=== PATIENT | female | born 2000 | race Caucasian/White ===

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

== ENCOUNTER 2020-05-28 14:47 | Inpatient (IN) | payer OTHER ==
[2020-05-28 16:02] VITALS: BMI 42.7
[2020-05-28] MEDS ORDERED: BUTORPHANOL TARTRATE 1 MG/ML VIAL IVPB PRN (16:41)
[2020-05-28] MEDS ORDERED: DINOPROSTONE 10 MG VAGINAL SUPPOSITORY VG ONE (16:43)
[2020-05-28] MEDS ORDERED: ELECTROLYTE-148 SOLN 1,000 ML IV SCH (16:45)
--- NOTE | 2020-05-28 16:53 | HP ---
Past Medical History - Primary Care Physician PCP:: Lali Marion - Admission Chief Complaint: spontaneous rupture of membranes. 40 week History of Present Illness: 20 yo EDC EGA 40.2 week admitted for SRom and obesity History Source: Patient Limitations to Obtaining History: No Limitations - Past Medical History ...: 2 ...Para: 1 ...Term: 1 ...EDC by Sono: 05/26/20 - Past Surgical History Past Surgical History: Yes: None Hx Myomectomy: No Hx Transabdominal Cerclage: No - Smoking History Smoking history: Never smoked Have you smoked in the past 12 months: No - Alcohol/Substance Use Hx Alcohol Use: No History of Substance Use: reports: None Home Medications - Allergies Allergies/Adverse Reactions: Allergies Allergy/AdvReac Type Severity Reaction Status Date / Time apple Allergy Itching Verified 05/28/20 15:46 No Known Drug Allergies Allergy Verified 05/28/20 15:46 soy Allergy Nausea Verified 05/28/20 15:46 - Home Medications Home Medications: Ambulatory Orders Vitamins (Sjr) - 1 tab PO DAILY 10/18/18 Review of Systems - Review of Systems Constitutional: reports: No Symptoms Eyes: reports: No Symptoms HENT: reports: No Symptoms Neck: reports: No Symptoms Cardiovascular: reports: No Symptoms Respiratory: reports: No Symptoms Gastrointestinal: reports: No Symptoms Genitourinary: reports: No Symptoms Breasts: reports: No Symptoms Reported Musculoskeletal: reports: No Symptoms Integumentary: reports: No Symptoms Neurological: reports: No Symptoms Endocrine: reports: No Symptoms Hematology/Lymphatic: reports: No Symptoms Psychiatric: reports: No Symptoms Physical Exam - Maternity Vital Signs: Vital Signs Temperature 97.8 F 05/28/20 16:00 Pulse Rate 76 05/28/20 16:00 Respiratory Rate 18 05/28/20 16:00 Blood Pressure 126/74 05/28/20 16:00 O2 Sat by Pulse Oximetry (%) 100 05/28/20 16:00 Constitutional: Yes: Well Nourished, No Distress Neck: Yes: WNL Breast(s): Yes: WNL - Abdominal Exam/OB Fundal Height: 40 Number of Fetuses: Single Presentation: Vertex Contractions: Yes Regularity: Irritability Monitor Mode: External Heart Rate Location: [facility] Category: I Decelerations: None - Vaginal Exam/OB Vaginal Bleeding: No Dilatation (cm): closed Effacement (%): 50 Amniotic Membrane Status: Ruptured Amniotic Fluid: Yes: Clear - Physical Exam Musculoskeletal: Yes: WNL Extremities: Yes: WNL Edema: No Psychiatric: Yes: WNL, Alert, Oriented Hemorrhage Risk Assessment - Risk Factors Medium Risk Factors: Yes: None Risk Score: 1 Risk Level: Medium Risk Assessment/Plan IUP at 40.2 week srom obesity cat 1 Plan cervidil placed by Dr Rodríguez
--- NOTE | 2020-05-28 17:25 | PN ---
Progress Note (short form) - Note Progress Note: Patient admitted with rupture of membranes. She is 2 days overdue with her second baby. Examination as per request of Dr. Marion. Cervix is closed, 50%, station -3. Clear amniotic fluid. Dr. Marion recommended Cervidil induction. Explained to patient who agrees with that. Cervidil placed at the level of external os.
[2020-05-28 17:34] LABS: BASO % 0.5 % (0-2.0); EOS % 2.3 % (0-4.5); HEMATOCRIT 34.5 % (32.4-45.2); HEMOGLOBIN 11.5 GM/dL (10.7-15.3); LYMPH % 18.1 % (8-40); MCH 27.5 pg (25.7-33.7); MCHC 33.2 g/dl (32.0-36.0); MEAN CELL VOLUME 82.9 fl (80-96); MEAN PLT VOLUME 8.8 fl (7.5-11.1); MONO % 5.7 % (3.8-10.2); NEUT % 73.4 % (42.8-82.8); PLATELET COUNT 269 K/MM3 (134-434); RBC 4.17 M/mm3 (3.60-5.2); RDW 14.7 % (11.6-15.6); WHITE BLOOD COUNT 7.5 K/mm3 (4.0-10.0)
[2020-05-28 17:41] LABS: INR 0.89 (0.83-1.09); PROTHROMBIN TIME (PATIENT) 10.8 SEC (9.7-13.0)
[2020-05-28 17:43] LABS: ACTIVATED PTT 26.5 SECONDS (25.2-36.5)
[2020-05-28 18:01] LABS: POTASSIUM 4.1 mmol/L (3.5-5.1)
[2020-05-28 18:02] LABS: CALCIUM 9.1 mg/dL (8.5-10.1)
[2020-05-28 18:03] LABS: BLOOD UREA NITROGEN 8.7 mg/dL (7-18)
[2020-05-28 18:06] LABS: CREATININE 0.6 mg/dL (0.55-1.3)
[2020-05-28] MEDS ORDERED: BUTORPHANOL TARTRATE 2 MG/ML VIAL ONE (23:40)
[2020-05-29] MEDS ORDERED: OXYTOCIN 20 UNITS in 0.9% NS 20 UNIT/1,000 ML INFUS.BAG IV ONE ×2 (01:53→04:52)
[2020-05-29] MEDS ORDERED: LIDOCAINE HCL 1% PRESERVATIVE FREE - 30ML VIAL ONE (02:00)
--- NOTE | 2020-05-29 02:02 | PN ---
Ante-Partal Exam - Subjective Vital Signs: Vital Signs Temperature 98.2 F 05/29/20 00:00 Pulse Rate 71 05/29/20 00:00 Respiratory Rate 18 05/29/20 00:00 Blood Pressure 135/71 05/29/20 00:00 O2 Sat by Pulse Oximetry (%) 100 05/28/20 23:00 Bleeding: No Headache: No - Contractions Contractions: Yes Regularity: Regular Monitor Mode: External - Exam during Labor Variability: Moderate Exam: Vaginal Dilatation (cm): 7-8 Amniotic Membrane Status: Ruptured Presentation: Vertex - Assessment/Plan Assessment/Plan: Active labor anticipate vaginal delivery Plan continue present manahement
[2020-05-29] MEDS ORDERED: METHYLERGONOVINE MALEATE 0.2 MG/1 ML AMP IM PRN (02:31)
[2020-05-29] MEDS ORDERED: BISACODYL 10 MG SUPP.RECT PR PRN (02:31)
[2020-05-29] MEDS ORDERED: BENZOCAINE 28 GM HEMORRHOIDAL OINTMENT RC PRN (02:31)
[2020-05-29] MEDS ORDERED: WITCH HAZEL 50% (TUCKS) 40 PAD/JAR PAD TP PRN (02:31)
[2020-05-29] MEDS ORDERED: BENZOCAINE 20% 57 GM BOTTLE TP PRN (02:31)
--- NOTE | 2020-05-29 02:34 | PN ---
Delivery - Delivery Vaginal Delivery: No Problems, Spontaneous (dleivered by laborist due to precipitous delivery) Type of Anesthesia: Local Episiotomy/Laceration: 1st degree Delivery, Single - Stages of Labor Placenta: Yes: Spontaneous - Condition of Gender: Male Position: OA - [place] Feeding Plan Initial Plan: Elected not to breastfeed exclusively throughout hospitalization
[2020-05-29] MEDS ORDERED: OXYTOCIN 20 UNITS in 0.9% NS 20 UNIT/1,000 ML INFUS.BAG IV SCH (02:45)
[2020-05-29] MEDS: IBUPROFEN 600 MG TABLET (FP) PO PRN ×2 (03:35→12:21)
[2020-05-29] MEDS: ACETAMINOPHEN 325 MG TABLET (FP) PO PRN ×2 (03:35→12:22)
[2020-05-29] MEDS ORDERED: ACETAMINOPHEN 325 MG TABLET (FP) ONE (03:39)
[2020-05-29] MEDS ORDERED: IBUPROFEN 600 MG TABLET (FP) PO ONE (03:39)
[2020-05-29 04:40] LABS: CORD BASE EXCESS -3.6 mmol/L (0-2); CORD HCO3 22.9 mmHg (20-29); CORD PCO2 46.3 mmHg (30-78); CORD pH 7.313 (7.14-7.44)
[2020-05-29 04:45] LABS: CORD BASE EXCESS -6.3 mmol/L (0-2); CORD HCO3 23.4 mmHg (20-29); CORD PCO2 63.9 mmHg (30-78); CORD pH 7.182 (7.14-7.44)
--- NOTE | 2020-05-29 23:46 | PN ---
Post Note - Post Date of Delivery: 05/29/20 Vital Signs: Vital Signs - 24 hr 05/29/20 05/29/20 05/29/20 00:00 01:00 02:40 Temperature 98.2 F 97.9 F 98.0 F Pulse Rate 71 79 89 Respiratory 18 20 20 Rate Blood Pressure 135/71 130/85 116/69 05/29/20 05/29/20 05/29/20 02:55 03:10 03:25 Temperature 98.0 F Pulse Rate 74 71 72 Respiratory 20 20 20 Rate Blood Pressure 126/68 108/67 120/60 05/29/20 05/29/20 05/29/20 05:25 10:00 14:00 Temperature 98.1 F 98.7 F 98 F Pulse Rate 74 65 82 Respiratory 18 20 20 Rate Blood Pressure 107/75 131/55 L 114/65 05/29/20 17:45 Temperature 98.5 F Pulse Rate 80 Respiratory 20 Rate Blood Pressure 126/62 Labs: Laboratory Results - last 24 hr 05/28/20 05/29/20 05/29/20 15:50 02:08 02:08 Cord Blood pH 7.313 7.182 Cord Blood PCO2 46.3 63.9 Cord Blood PO2 38.2 20.7 Cord Blood HCO3 22.9 23.4 Cord Base Excess -3.600 L -6.300 L COVID-19 (NADINE) Not detected - Subjective Subjective: No Complaints - Objective Afebrile: Yes Breast: Not engorged Abdomen: Soft, Non-tender Uterus: Fundus firm Vagina: Scant lochia Extremities: Non-tender - Assessment/Plan (1) Normal vaginal delivery Assessment: S/P Normal Plan: Routine Care
[2020-05-30 08:30] LABS: BASO % 1.2 % (0-2.0); EOS % 3.5 % (0-4.5); HEMATOCRIT 32.4 % (32.4-45.2); HEMOGLOBIN 10.5 GM/dL (10.7-15.3); LYMPH % 21.9 % (8-40); MCH 26.8 pg (25.7-33.7); MCHC 32.4 g/dl (32.0-36.0); MEAN CELL VOLUME 82.8 fl (80-96); MEAN PLT VOLUME 8.8 fl (7.5-11.1); MONO % 5.9 % (3.8-10.2); NEUT % 67.5 % (42.8-82.8); PLATELET COUNT 285 K/MM3 (134-434); RBC 3.92 M/mm3 (3.60-5.2); RDW 14.7 % (11.6-15.6); WHITE BLOOD COUNT 11.5 K/mm3 (4.0-10.0)
[2020-05-30 23:33] VITALS: PULSE 81
--- NOTE | 2020-05-31 00:13 | PN ---
Post Note - Post Date of Delivery: 05/29/20 Post Day: 1 Vital Signs: Vital Signs - 24 hr 05/30/20 05/30/20 05/30/20 02:00 10:00 22:00 Temperature 98.2 F 98.3 F 98.1 F Pulse Rate 89 83 81 Respiratory 20 18 18 Rate Blood Pressure 109/75 124/76 114/75 Labs: Laboratory Results - last 24 hr 05/30/20 07:32 WBC 11.5 H RBC 3.92 Hgb 10.5 L Hct 32.4 MCV 82.8 MCH 26.8 MCHC 32.4 RDW 14.7 Plt Count 285 MPV 8.8 Absolute Neuts (auto) 7.8 Neutrophils % 67.5 Lymphocytes % 21.9 D Monocytes % 5.9 Eosinophils % 3.5 Basophils % 1.2 Nucleated RBC % 0 - Subjective Subjective: No Complaints - Objective Afebrile: Yes Breast: Not engorged Abdomen: Soft, Non-tender Uterus: Fundus firm, Non-tender Vagina: Scant lochia Extremities: Non-tender - Assessment/Plan (1) Normal vaginal delivery Assessment: S/P Normal Plan: Routine Care
[2020-05-31 13:32] VITALS: BP 122/50; TEMP 98.3
--- NOTE | 2020-06-03 16:30 | DS ---
Physical Exam-ATTENDANT CHILD ACTIVITY Vital Signs: Vital Signs Temperature 98.3 F 05/31/20 10:00 Pulse Rate 81 05/31/20 10:00 Respiratory Rate 18 05/31/20 10:00 Blood Pressure 122/50 L 05/31/20 10:00 O2 Sat by Pulse Oximetry (%) 100 05/28/20 23:00 Constitutional: Yes: Well Nourished, No Distress Gastrointestinal: Yes: WNL, Soft ....Post : Yes: Uterus firm, Uterus non-tender Breast(s): Yes: WNL Musculoskeletal: Yes: WNL Extremities: Yes: WNL Edema: No Psychiatric: Yes: WNL, Alert, Oriented Labs: CBC, BMP 05/30/20 07:32 05/28/20 17:00 Delivery - Delivery Vaginal Delivery: No Problems, Spontaneous (dleivered by laborist due to precipitous delivery) Type of Anesthesia: Local Episiotomy/Laceration: 1st degree EBL (cc): 300 Delivery, Single - Stages of Labor Date 1st Stage Initiatied: 05/28/20 Time 1st Stage Initiated: 00:40 Date 2nd Stage Initiated: 05/29/20 Time 2nd Stage Initiated: 02:00 Date of Delivery: 05/29/20 Time of Delivery: 02:07 Time Placenta Delivered: 02:13 Placenta: Yes: Spontaneous - 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 You may walk unlimited [place] of and climb stairs. You may resume driving the car when you feel safe and comfortable behind the wheel. No sexual activity as instructed. Wound care If you have a bandage, leave it on, and keep dry for 48-72 hours. After that time discard the outer bandage. If they are tapes on the skin under the out of bandage leave them in place. They will peel off in the next 7 to 10 days. Do Not Peel them off. You may shower the day after surgery. If there are tapes present on the skin, you may shower over them. Diet There are no dietary restrictions. Eat healthy, high-fiber foods. Drink 6 to 8 glasses of liquid each day. This will assist in keeping your bowels are regular. Pain management You may take Tylenol or acetaminophen or Ibuprofen (for example, Motrin, Advil etc.) from my pain prescription medication is ordered should be taken as prescribed for moderate to severe pain. Call MD for any of the following: Severe pain not relieved by medication Fever of 101 or higher Excessive bleeding or drainage on dressing Inability to urinate Referrals: Lali Marion MD [Staff Physician] - Disposition: HOME - Home Medications Comprehensive Discharge Medication List: Ambulatory Orders Vitamins (Sjr) - 1 tab PO DAILY 10/18/18 Ibuprofen [Motrin -] 600 mg PO QID #28 tablet 05/29/20
== END 2020-05-31 13:00 | disposition home or self-care (01) | DRG 560 ==
LOC: JDEL 14:47 → JLDR 15:30 → J3W 05-29 05:19
PROVIDERS: ADMIT Obstetrics & Gynecology; ATTEND Obstetrics & Gynecology
PROC: 3E0P7VZ Introduction of Hormone into Female Reproductive, Via Natural or Artificial Opening (ICD-10-PCS; principal; 2020-05-28)
PROC: 10E0XZZ Delivery of Products of Conception, External Approach (ICD-10-PCS; 2020-05-29)
DX: O48.0 Post-term pregnancy (principal); O42.02 Full-term premature rupture of membranes, onset of labor within 24 hours of rupture; O62.3 Precipitate labor; Z3A.40 40 weeks gestation of pregnancy; Z37.0 Single live birth; O70.0 First degree perineal laceration during delivery; O99.214 Obesity complicating childbirth; E66.01 Morbid (severe) obesity due to excess calories; Z86.19 Personal history of other infectious and parasitic diseases; Z91.018 Allergy to other foods
CPT/HCPCS: 36415; 36600; 59409; 80048; 82803; 85025; 85610; 85730; 86780; 86850; 86900; 86901; 87389; C9803; U0003

== ENCOUNTER 2022-04-20 12:55 | Inpatient (IN) | payer OTHER ==
[2022-04-20 14:47] VITALS: BMI 46.4
[2022-04-20] MEDS ORDERED: BUTORPHANOL TARTRATE 2 MG/ML VIAL IVPB PRN (16:33)
[2022-04-20] MEDS ORDERED: BUTORPHANOL TARTRATE 2 MG/ML VIAL ONE (18:02)
[2022-04-20] MEDS ORDERED: PROMETHAZINE HCL 25 MG/1 ML VIAL ONE (18:02)
[2022-04-20] MEDS: ELECTROLYTE-148 SOLN 1,000 ML IV SCH (18:05)
[2022-04-20] MEDS ORDERED: PROMETHAZINE HCL 25 MG/1 ML VIAL IVPB ONE (18:05)
[2022-04-20] MEDS ORDERED: OXYTOCIN 20 UNITS in 0.9% NS 20 UNIT/1,000 ML INFUS.BAG IV ONE (19:13)
[2022-04-20] MEDS ORDERED: LIDOCAINE HCL 1% PRESERVATIVE FREE - 30ML VIAL ONE (19:14)
[2022-04-20] MEDS ORDERED: WITCH HAZEL 50% (TUCKS) 40 PAD/JAR PAD TP PRN (19:22)
[2022-04-20] MEDS ORDERED: ACETAMINOPHEN 325 MG TABLET (FP) PO PRN (19:22)
[2022-04-20] MEDS ORDERED: BENZOCAINE 20% 57 GM BOTTLE TP PRN (19:22)
[2022-04-20] MEDS ORDERED: BENZOCAINE 28 GM HEMORRHOIDAL OINTMENT TP PRN (19:22)
[2022-04-20] MEDS ORDERED: BISACODYL 10 MG SUPP.RECT RC PRN (19:22)
[2022-04-20] MEDS ORDERED: OXYTOCIN 20 UNITS in 0.9% NS 20 UNIT/1,000 ML INFUS.BAG IV SCH (19:30)
[2022-04-20] MEDS: METHYLERGONOVINE MALEATE 0.2 MG/1 ML AMP IM PRN (19:46)
[2022-04-20 20:17] LABS: CORD HCO3 24.3 mmHg (20-29); CORD PCO2 60.8 mmHg (30-78); CORD pH 7.219 (7.14-7.44)
[2022-04-20 20:18] LABS: CORD BASE EXCESS -1.6 mmol/L (0-2); CORD HCO3 23.9 mmHg (20-29); CORD PCO2 43.4 mmHg (30-78); CORD pH 7.359 (7.14-7.44)
[2022-04-20] MEDS: IBUPROFEN 600 MG TABLET (FP) PO PRN (23:47)
[2022-04-21 07:52] LABS: BASO % 0.5 % (0-2.0); EOS % 1.8 % (0-4.5); HEMATOCRIT 29.2 % (32.4-45.2); HEMOGLOBIN 9.7 GM/dL (10.7-15.3); LYMPH % 26.3 % (8-40); MCH 28.6 pg (25.7-33.7); MCHC 33.3 g/dl (32.0-36.0); MEAN CELL VOLUME 85.8 fl (80-96); MEAN PLT VOLUME 8.7 fl (7.5-11.1); MONO % 5.1 % (3.8-10.2); NEUT % 66.3 % (42.8-82.8); PLATELET COUNT 225 10^3/uL (134-434); RDW 14.8 % (11.6-15.6); WHITE BLOOD COUNT 10.7 K/mm3 (4.0-10.0)
[2022-04-21] MEDS: FERROUS SO4 325 MG TABLET (FP) PO SCH ×3 (08:28→17:55)
[2022-04-21] MEDS: PRENATAL VITAMINS W/ FOLIC ACID TABLET (FP) PO SCH (10:31)
[2022-04-21] MEDS: METHYLERGONOVINE MALEATE 0.2 MG/1 ML AMP IM PRN (12:04)
[2022-04-21] MEDS: ELECTROLYTE-148 SOLN 1,000 ML IV SCH (20:37)
[2022-04-21 21:18] LABS: BASO % 0.4 % (0-2.0); EOS % 1.8 % (0-4.5); HEMATOCRIT 29.9 % (32.4-45.2); HEMOGLOBIN 10.2 GM/dL (10.7-15.3); LYMPH % 22.5 % (8-40); MCH 29.4 pg (25.7-33.7); MCHC 34.2 g/dl (32.0-36.0); MEAN CELL VOLUME 86.1 fl (80-96); MEAN PLT VOLUME 8.3 fl (7.5-11.1); NEUT % 69.3 % (42.8-82.8); PLATELET COUNT 243 10^3/uL (134-434); RBC 3.47 M/mm3 (3.60-5.2); RDW 14.6 % (11.6-15.6); WHITE BLOOD COUNT 10.8 K/mm3 (4.0-10.0)
[2022-04-21] MEDS ORDERED: SENNOSIDES/DOCUSATE COMBO (SENNA PLUS) TABLET (UD) PO PRN (22:00)
[2022-04-21] MEDS: IBUPROFEN 600 MG TABLET (FP) PO PRN (22:40)
[2022-04-22] MEDS: oxyCODONE HCL 5 MG TABLET PO PRN ×2 (00:19→07:58)
[2022-04-22] MEDS: IBUPROFEN 600 MG TABLET (FP) PO PRN (06:06)
[2022-04-22] MEDS: FERROUS SO4 325 MG TABLET (FP) PO SCH ×2 (07:58→14:33)
[2022-04-22] MEDS: PRENATAL VITAMINS W/ FOLIC ACID TABLET (FP) PO SCH (10:31)
[2022-04-22 11:50] VITALS: BP 104/68; PULSE 76; RESP 16; TEMP 97.7
== END 2022-04-22 14:35 | disposition home or self-care (01) | DRG 560 ==
LOC: JDEL 12:55 → JLDR 14:10 → J3W 21:27
PROVIDERS: ADMIT Obstetrics & Gynecology; ATTEND Obstetrics & Gynecology
PROC: 10E0XZZ Delivery of Products of Conception, External Approach (ICD-10-PCS; principal; 2022-04-20)
DX: O48.0 Post-term pregnancy (principal); O70.0 First degree perineal laceration during delivery; O99.214 Obesity complicating childbirth; E66.01 Morbid (severe) obesity due to excess calories
CPT/HCPCS: 36415; 36600; 59409; 80048; 82803; 85025; 85610; 85730; 86780; 86850; 86900; 86901; C9803-CS; U0003; U0005